=== PATIENT | male | born 1970 | race Caucasian/White ===

== ENCOUNTER 2021-11-08 09:12 | Emergency (ER) | payer OTHER ==
[~2021-11-08] VITALS: Ht 172.7 cm; Wt 95.5 kg
[2021-11-08] MEDS ORDERED: ZOCOR 10MG10 MG PO (09:19)
[2021-11-08] MEDS ORDERED: VITAMIN D31000 I1 PO (09:19)
[2021-11-08 09:20] VITALS: TEMP 98.8
[2021-11-08] MEDS ORDERED: CELEXA10 MG PO (09:24)
[2021-11-08 10:13] VITALS: BP 136/92; PULSE 100
== END 2021-11-08 10:15 | disposition home or self-care (01) ==
LOC: COL.ER 09:12
DX: S90.02XA Contusion of left ankle, initial encounter (principal); Z28.311 Partially vaccinated for COVID-19; W10.8XXA Fall (on) (from) other stairs and steps, initial encounter; X50.1XXA Overexertion from prolonged static or awkward postures, initial encounter